=== PATIENT | male | born 1935 | race Caucasian/White ===

== ENCOUNTER 2018-09-28 13:06 | Emergency (ER) | payer OTHER ==
--- NOTE | 2018-09-28 13:46 | ED ---
General Adult HPI - General Chief complaint: Abdominal Pain Stated complaint: bowel obstruction Time Seen by Provider: 09/28/18 13:15 Source: patient, RN notes reviewed Mode of arrival: ambulatory Limitations: no limitations - History of Present Illness Initial comments: This is an 83-year-old male who presents emergency department stating that he thinks he has a bowel obstruction. Patient states she has had multiple bowel surgeries many years ago. Patient states he had surgery secondary to colon cancer. Patient states had a colonoscopy in May. Patient comes in today because lately he finds it very difficult to have a bowel movement and he may go days without having one and finally he will have one. Patient states he started having these problems about 2 months ago. Patient states when he gets distended he isn't quite a bit of pain but today he only has very minimal pain. Patient states she went to his primary medical care doctor they did an x-ray and were concerned that he had a bowel obstruction. Any fever chills per patient denies any nausea or vomiting. Patient denies any chest pain difficulty breathing [place] of breath. Patient denies any dysuria hematuria urinary frequency. - Related Data Home Medications Medication Instructions Recorded Confirmed Aspirin EC [Ecotrin Low Dose] 81 mg PO DAILY 09/28/18 09/28/18 Atenolol [Tenormin] 25 mg PO DAILY 09/28/18 09/28/18 Cyanocobalamin [Vitamin B-12] 500 mcg PO DAILY 09/28/18 09/28/18 Finasteride [Proscar] 5 mg PO DAILY 09/28/18 09/28/18 Loperamide [Imodium] 2 mg PO QID PRN 09/28/18 09/28/18 Pantoprazole [Protonix] 40 mg PO DAILY 09/28/18 09/28/18 Simvastatin 40 mg PO HS 09/28/18 09/28/18 Tamsulosin [Flomax] 0.8 mg PO DAILY 09/28/18 09/28/18 Allergies Allergy/AdvReac Type Severity Reaction Status Date / Time No Known Allergies Allergy Verified 09/28/18 13:35 Review of Systems ROS Statement: Those systems with pertinent positive or pertinent negative responses have been documented in the HPI. ROS Other: All systems not noted in ROS Statement are negative. Past Medical History Past Medical History: Hyperlipidemia, Hypertension Additional Past Medical History / Comment(s): colon cancer, elarged prostate History of Any Multi-Drug Resistant Organisms: None Reported Past Surgical History: Back Surgery, Bowel Resection Past Psychological History: No Psychological Hx Reported Smoking Status: Current every day smoker Past Alcohol Use History: Unable to Obtain Past Drug Use History: None Reported General Exam - General Exam Comments Initial Comments: GENERAL: Patient is well-developed and well-nourished. Patient is nontoxic and well- hydrated and is in minimal distress. ENT: Neck is soft and supple. No significant lymphadenopathy is noted. Oropharynx is clear. Moist mucous membranes. Neck has full range of motion without eliciting any pain. EYES: The sclera were anicteric and conjunctiva were pink and moist. Extraocular movements were intact and pupils were equal round and reactive to light. Eyelids were unremarkable. PULMONARY: Unlabored respirations. Good breath sounds bilaterally. No audible rales rhonchi or wheezing was noted. CARDIOVASCULAR: There is a regular rate and rhythm without any murmurs gallops or rubs. ABDOMEN: Soft and nontender with normal bowel sounds. Patient has a midline scar on his abdomen No palpable organomegaly was noted. There is no palpable pulsatile mass. SKIN: Skin is clear with no lesions or rashes and otherwise unremarkable. NEUROLOGIC: Patient is alert and oriented x3. Cranial nerves II through XII are grossly intact. Motor and sensory are also intact. Normal speech, volume and content. Symmetrical smile. MUSCULOSKELETAL: Normal extremities with adequate strength and full range of motion. No lower extremity swelling or edema. No calf tenderness. LYMPHATICS: No significant lymphadenopathy is noted PSYCHIATRIC: Normal psychiatric evaluation. Normal interpersonal interactions appears functionally intact in deals appropriately with others. No signs of depression. No signs of anxiety. Limitations: no limitations Course Vital Signs 09/28/18 13:13 Temperature 97.6 F Pulse Rate 64 Respiratory 18 Rate Blood Pressure 149/78 O2 Sat by Pulse 99 Oximetry Medical Decision Making - Medical Decision Making CT shows no acute abnormality there was a small lesion in the long and some fullness at the pancreatic head. Patient will follow-up with his physician on these. - Lab Data Result diagrams: 09/28/18 14:00 09/28/18 14:00 Lab Results 09/28/18 09/28/18 09/28/18 Range/Units 14:00 14:00 14:00 WBC 4.9 (3.8-10.6) k/uL RBC 4.07 L (4.30-5.90) m/uL Hgb 13.2 (13.0-17.5) gm/dL Hct 40.1 (39.0-53.0) % MCV 98.4 (80.0-100.0) fL MCH 32.4 (25.0-35.0) pg MCHC 32.9 (31.0-37.0) g/dL RDW 13.3 (11.5-15.5) % Plt Count 114 L (150-450) k/uL Neutrophils % 72 % Lymphocytes % 19 % Monocytes % 5 % Eosinophils % 2 % Basophils % 1 % Neutrophils # 3.5 (1.3-7.7) k/uL Lymphocytes # 0.9 L (1.0-4.8) k/uL Monocytes # 0.3 (0-1.0) k/uL Eosinophils # 0.1 (0-0.7) k/uL Basophils # 0.0 (0-0.2) k/uL Sodium 142 (137-145) mmol/L Potassium 4.5 (3.5-5.1) mmol/L Chloride 112 H (98-107) mmol/L Carbon Dioxide 22 (22-30) mmol/L Anion Gap 8 mmol/L BUN 22 H (9-20) mg/dL Creatinine 1.09 (0.66-1.25) mg/dL Est GFR (CKD-EPI)AfAm 71 (>60 ml/min/1.73 sqM) Est GFR (CKD-EPI)NonAf 62 (>60 ml/min/1.73 sqM) Glucose 118 H (74-99) mg/dL Calcium 8.5 (8.4-10.2) mg/dL Total Bilirubin 0.5 (0.2-1.3) mg/dL AST 29 (17-59) U/L ALT 24 (21-72) U/L Alkaline Phosphatase 91 (38-126) U/L Total Protein 6.5 (6.3-8.2) g/dL Albumin 3.7 (3.5-5.0) g/dL Amylase 92 (30-110) U/L Lipase 89 (23-300) U/L Urine Color Yellow Urine Appearance Clear (Clear) Urine pH 5.5 (5.0-8.0) Ur Specific [place] 1.024 (1.001-1.035) Urine Protein Trace H (Negative) Urine Glucose (UA) Negative (Negative) Urine Ketones Negative (Negative) Urine Blood Negative (Negative) Urine Nitrite Negative (Negative) Urine Bilirubin Negative (Negative) Urine Urobilinogen <2.0 (<2.0) mg/dL Ur Leukocyte Esterase Negative (Negative) Disposition Clinical Impression: Abdominal pain Disposition: HOME SELF-CARE Condition: Good Instructions: Abdominal Pain (ED) Is patient prescribed a controlled substance at d/c from ED?: No Referrals: [facility],Clinic [Primary Care Provider] - 1-2 days Time of Disposition: 16:59
[2018-09-28 14:31] LABS: Appearance,Urine Clear (Clear); Basophils % (A) 1 %; Bilirubin,Urine Negative (Negative); Blood,Urine Negative (Negative); Color,Urine Yellow; Eosinophils # (A) 0.1 k/uL (0-0.7); Eosinophils % (A) 2 %; Glucose,Urine (UA) Negative (Negative); HCT 40.1 % (39.0-53.0); HGB 13.2 gm/dL (13.0-17.5); Ketones,Urine Negative (Negative); Leukocyte Esterase,Urine Negative (Negative); Lymphocytes # (A) 0.9 k/uL (1.0-4.8); Lymphocytes % (A) 19 %; MCH 32.4 pg (25.0-35.0); MCHC 32.9 g/dL (31.0-37.0); MCV 98.4 fL (80.0-100.0); Mean Platelet Volume 7.4; Monocytes # (A) 0.3 k/uL (0-1.0); Monocytes % (A) 5 %; Neutrophils # (A) 3.5 k/uL (1.3-7.7); Neutrophils % (A) 72 %; Nitrite,Urine Negative (Negative); PH, Urine 5.5 (5.0-8.0); Platelet Count 114 k/uL (150-450); Protein,Urine Trace (Negative); RBC 4.07 m/uL (4.30-5.90); RDW 13.3 % (11.5-15.5); Specific Gravity,Urine 1.024 (1.001-1.035); Urobilinogen,Urine <2.0 mg/dL (<2.0); WBC 4.9 k/uL (3.8-10.6)
[2018-09-28 14:48] LABS: Albumin 3.7 g/dL (3.5-5.0); Calcium 8.5 mg/dL (8.4-10.2); Potassium 4.5 mmol/L (3.5-5.1); Total Bilirubin 0.5 mg/dL (0.2-1.3); Total Protein 6.5 g/dL (6.3-8.2)
--- NOTE | 2018-09-28 16:24 | CT ---
EXAMINATION TYPE: CT abdomen pelvis w con DATE OF EXAM: 09/28/2018 COMPARISON: None INDICATION: Abdominal pain and constipation DLP: 627.2 mGycm, Automated exposure control for dose reduction was used. CONTRAST: 100 mL of Isovue 300. Study performed without Oral Contrast TECHNIQUE: Axial images were obtained from above the diaphragm to the pubic rami in the axial plane a t 5 mm thick sections. Reconstructed images are reviewed on the computer in the coronal plane. FINDINGS: Limited CT sections are obtained the lung bases. Minimal compressive atelectasis may be present. The re is an area of thickening along the right pleural margin is insertion of the major fissure on the r ight. This measures 2.1 x 0.7 cm. Atelectasis and underlying mass could be considered. Soft tissue co mponent is evident on the mediastinal windows. Epigastric surgical clips are present CT ABDOMEN: Liver: Mild biliary prominence may be present within the liver. Spleen: Normal. Splenule is at the splenic hilum. Pancreas: Pancreatic duct in the head of the pancreas is slightly prominent. A more distal pancreatic duct has more normal appearance. Common bile duct appears somewhat prominent. Consider correlation w ith ultrasound. Adrenal glands: The adrenal glands are normal. Gallbladder: Surgically absent. Kidneys: No masses are evident. No hydronephrosis is present. No cysts are present. Delayed images were obtained through the kidneys, which remain unremarkable. Aorta: Vascular calcification is within the aorta. Inferior vena cava: Normal. CT PELVIS: There appears to be prior surgery of the ascending colon region. Abundant fecal debris is within this region. Dilated small bowel loops however are not evident suggest obstruction. Study is without oral contrast limiting the bowel evaluation. Some scattered fluid-filled small bowel loops within the pel vis. Appendix: Not visualized Urinary bladder: Normal as visualized Genitourinary structures: Markedly prominent. This is elevating the urinary bladder. Osseous structures: No suspicious lytic or sclerotic lesions. Facet hypertrophy in the lower lumbar s pine is present. IMPRESSIONS: 1. Pleural-based area of increased density at the right lateral lung base. Atelectasis and pneumonia could be considered. Underlying neoplasm is not excluded. This should be followed up. 2. Some prominence of the pancreatic duct at the head of the pancreas. Suspicious abnormality at the head of the pancreas is not identified. Consider correlation with ultrasound. Some minimal biliary di latation of the hepatic bile ducts may be present. 4. Postsurgical changes of the ascending colon. 5. Marked prominence of the urinary bladder.
[2018-09-28 17:05] VITALS: BP 135/76; PULSE 70; RESP 20; TEMP 98
== END 2018-09-28 17:05 | disposition home or self-care (01) ==
LOC: EC 13:06
DX: R10.9 Unspecified abdominal pain (principal); E78.5 Hyperlipidemia, unspecified; I10 Essential (primary) hypertension; N40.0 Benign prostatic hyperplasia without lower urinary tract symptoms; F17.200 Nicotine dependence, unspecified, uncomplicated; Z85.038 Personal history of other malignant neoplasm of large intestine; Z98.890 Other specified postprocedural states; Z79.82 Long term (current) use of aspirin; Z79.899 Other long term (current) drug therapy
CPT/HCPCS: 36415; 80053; 82150; 83690; 85025; 81003; 74177; 99284; Q9967

== ENCOUNTER → 2021-04-10 | Outpatient (CLI) | payer OTHER ==
--- NOTE | 2021-04-13 11:38 | PE ---
EXAMINATION TYPE: PET CT fusion skull to thigh DATE OF EXAM: 04/10/2021 COMPARISON: Chest x-ray June 18, 2020. CT abdomen and pelvis September 28, 2018. CT chest August 06, 2012 HISTORY: Solitary pulmonary nodule , remote past history of lung and colon cancer. TECHNIQUE: Following the intravenous administration of 10.56 mCi of F-18 FDG, whole body images are performed from the skull base to the midthigh. Images are reviewed on the computer in the coronal, a xial, and sagittal planes. Reconstructed rotating images are created on independent workstation and reviewed on the computer. A localization and attenuation correction CT is performed in conjunction with the PET scan. Blood glucose level equals 86. SCAN: Initial Scan FINDINGS: SKULL BASE AND NECK: No areas of abnormal hypermetabolic uptake. CHEST, MEDIASTINUM, AND HILAR REGION: Background Mild underlying emphysematous change is redemonstrat ed. Mild to moderate linear scarring and/or atelectasis in both lower lungs. Residual lateral right b asilar focal nodular chronic consolidation axial image [address] There is ametabolic persistent fullness left suprahilar region near left pulmonary artery axial image 94 without abnorma l hypermetabolic uptake. There is a nonspecific 12 x 7 mm slightly hypermetabolic right hilar or trac heobronchial lymph node axial image 97, max SUV is 3.5. ABDOMEN AND PELVIS: Normal excretion is present. Nonspecific bowel uptake. No adrenal masses. No susp icious hypermetabolic uptake. OSSEOUS STRUCTURES: No suspicious hypermetabolic uptake. OTHER CT: Ascending aortic aneurysm up to 4.0 cm. Coronary artery calcification. Bilateral flame shap ed gynecomastia. Surgical clips near gastroesophageal junction. Cholecystectomy clips. There is 1.3 cm splenule. Surgi kalyn changes to the right colon with focal prominence. Additional surgical sutures sigmoid colon in th e pelvis. Markedly enlarged prostate gland consistent with BPH. Scattered bilateral pelvic phlebolith s. Mild atherosclerotic change of aorta extends into branch vessels. Prominent spurring and disc space n arrowing in the cervical spine. IMPRESSION: Nonspecific prominent but nonenlarged thoracic lymph nodes. Stable posttreatment changes right lung base. Mildly hypermetabolic right hilar/tracheobronchial subcentimeter lymph node is nonsp ecific. Consider short-term follow-up. No additional areas of abnormal hypermetabolic uptake.
== END | disposition home or self-care (01) ==
LOC: RADPETMAIN 12:31
PROVIDERS: ATTEND Physician Assistant Medical
DX: R59.0 Localized enlarged lymph nodes (principal); R91.1 Solitary pulmonary nodule; Z85.038 Personal history of other malignant neoplasm of large intestine
CPT/HCPCS: 78815; A9552

== ENCOUNTER → 2021-09-23 | Outpatient (CLI) | payer OTHER ==
--- NOTE | 2021-10-07 11:44 | P.ARTDOP ---
Arterial Doppler LOWER EXTREMITY ARTERIAL DOPPLER: DATE OF SERVICE: 09/23/2021 Reason for study: Left foot pain Doppler waveforms: Multiphasic bilaterally throughout with good Toe waveforms. Pulse volume recording: []. Pressure gradients: None. Ankle-brachial indices: Greater than 1 bilaterally. Toe brachial indices: 0.69 on the right, 0.99 on the left Impression: Normal flow pattern. Suspect an element of calcific wall disease causing elevation of ankle pressures..
== END | disposition home or self-care (01) ==
LOC: RADUSWWP 07:31
DX: M79.672 Pain in left foot (principal)
CPT/HCPCS: 93922

== ENCOUNTER → 2022-01-08 | Outpatient (CLI) | payer OTHER ==
--- NOTE | 2022-01-08 14:07 | CT ---
EXAMINATION TYPE: CT chest w con DATE OF EXAM: 01/08/2022 COMPARISON: CT chest dated 08/06/[address] abdomen dated 09/28/2018. PET scan dated 04/10/2021. HISTORY: Lung Nodule CT DLP: 348 mGycm Automated exposure control for dose reduction was used. TECHNIQUE: CT scan of the chest is performed with IV Contrast, patient injected with 80 mL of Isovue 300. FINDINGS: A triangular opacity is seen at the lateral aspect of the right lung base measuring up to 14 x 18 mm, smaller as compared to 2012 CT scan when it measured 19 x 30 mm. This is probably related to chronic atelectasis or posttreatment changes. Small atelectasis is seen in the left lung base. Scattered small areas of slightly increased density and groundglass opacities are seen at the lateral and inferior aspects of the upper lobes as well as in the middle lobe and lingula, with similar pickens ges at the periphery of the lower lobes more on the left side. These are nonspecific without discrete measurable nodule or mass, and could be related to an inflammatory/infectious process yet not apprec iated in 2012 CT scan. Pleural thickening and calcification is seen at the anterior aspect of the right upper lobe measuring up to 18 mm. Reticulations and mild fibrotic changes are seen in the lung bases more on the right si de. Patent central airways. No pleural or pericardial effusion. Increased cardiac size, please correl ate with echocardiographic results. Scattered arterial atherosclerotic calcifications including coron nemesio arterial calcifications. No pathologically enlarged lymph nodes in the chest. The ascending aorta measures 4 cm. Previous chol ecystectomy. Dilated central intrahepatic biliary tree and CBD, possibly related to previous cholecys tectomy status. Left simple renal cyst. Surgical clips at the gastroesophageal junction. Fused C6 and C7 vertebral bodies. Degenerative changes of the thoracic spine. Osteopenia. No aggressive bone lesi on. IMPRESSION: 1. The described irregular opacity at the lateral aspect of the right lung base is actually smaller a s compared to 2012 CT scan and likely represents chronic atelectasis versus chronic post treatment ch anges. 2. Scattered bilateral pulmonary areas of increased densities and groundglass opacities without discr ete nodules or measurable mass, not appreciated in 2012 CT scan. This could be related to an inflamma tory/infectious process, please correlate clinically. A precautionary follow-up CT scan in 3-6 months is advised. Other interval changes and incidental findings as detailed above.
== END ==
LOC: RADCTMAIN 07:57
PROVIDERS: ATTEND Internal Medicine
DX: R91.8 Other nonspecific abnormal finding of lung field (principal); J98.4 Other disorders of lung
CPT/HCPCS: 82565; 84520; 71260; 36415; Q9967